=== PATIENT | male | born 1965 | race Caucasian/White ===

== ENCOUNTER 2016-07-31 23:41 | Inpatient (IN) | payer OTHER ==
[~2016-07-31] VITALS: Ht 182.9 cm; Wt 99.8 kg
[~2016-07-31 23:41] MED LIST: ACET-2158 PO; ALBU8.5H3 INH; ASPI-781 PO; ASPI81TA3 PO; ATOR80TA75 PO; CLOP75TA27 PO; DOCU-144 PO; ENOX40DI14 SC; GABA300C PO; HYDR-3498 PO; HYDR-3504 PO; METF500T4 PO; MOR2I IV; NOVO3I SC
[2016-08-01] VITALS (11 sets, daily range): BP systolic 102–119; BP diastolic 56–69; PULSE 56–74; RESP 17–20; TEMP 98; Ht 182.9 cm; Wt 99.8 kg
[2016-08-01 00:02] LABS: ADD SCAN DIFF NO
[2016-08-01 00:04] LABS: BASOPHIL # 0.1 10^3/ul (0.0-0.1); BASOPHILS % 1.1 % (0.0-2.0); EOSINOPHILS # 0.4 10^3/ul (0.0-0.5); EOSINOPHILS % 5.1 % (0.0-7.0); HEMOGLOBIN 15.1 g/dl (14.0-18.0); LYMPHOCYTES # 2.9 10^3/ul (0.8-2.9); LYMPHOCYTES % 35.7 % (15.0-51.0); MEAN CORPUSCULAR HEMOGLOBIN 28.5 pg (29.0-33.0); MEAN CORPUSCULAR HGB CONC 32.8 g/dl (32.0-37.0); MEAN CORPUSCULAR VOLUME 86.8 fl (82.0-101.0); MEAN PLATELET VOLUME 11.3 fl (7.4-10.4); MONOCYTE # 0.8 10^3/ul (0.3-0.9); MONOCYTES % 9.8 % (0.0-11.0); NEUTROPHIL # 3.8 10^3/ul (1.6-7.5); NEUTROPHILS % 47.7 % (39.0-77.0); PLATELET COUNT 261 10^3/UL (140-415); RED CELL DISTRIBUTION WIDTH 15.3 % (11.5-14.5)
--- NOTE | 2016-08-01 00:11 | RADRPT ---
PROCEDURE: CT brain without contrast. CLINICAL INDICATION: Stroke. TECHNIQUE: CT scan of the brain was performed on a multi-detector high-resolution CT scanner. Co ntiguous axial images were obtained from the skull base to the vertex without intravenous contrast. Coronal and sagittal reformatted images were also obtained. Images were reviewed on the PACS works tation. One or more of the following dose reduction techniques were used: - Automated exposure control. - Adjustment of the mA and/or kV according to patient size. - Use of iterative reconstruction technique. Exam CTD/vol = 45.01 mGy. Total exam DLP = 720.23 mGy-cm. COMPARISON: 01/23/2015. FINDINGS: The ventricles and cortical sulci are within normal limits for patient's age. There are no areas of abnormal attenuation within the brain parenchyma. There is no mass effect or midline shift. There is no intracranial hemorrhage or abnormal extra-axial collection. The calvarium is intact. There is no evidence of fracture. Visualized paranasal sinuses and mastoid air cells are clear. IMPRESSION: No acute intracranial abnormality identified. A call report was made to Dr. Cobb at 12:10 a.m. .Luis Lanza MD, MD Date Time Electronically viewed and signed by .Luis Lanza MD, MD on 08/01/2016 00:11 .T/
[2016-08-01 00:14] LABS: INR 0.86; PROTIME 11.7 Sec (12.2-14.2); PT RATIO 0.9
[2016-08-01 00:15] LABS: PARTIAL THROMBOPLASTIN TIME 24.7 Sec (25.0-35.0)
--- NOTE | 2016-08-01 00:17 | RADRPT ---
PROCEDURE: XR Chest. CLINICAL INDICATION: Stroke symptoms. TECHNIQUE: Portable AP view of the chest was obtained. COMPARISON: 01/23/2015 FINDINGS: The cardiomediastinal silhouette is within normal limits. The lungs are clear. There is no evidenc e for pleural effusion, pneumothorax or pulmonary vascular congestion. The osseous structures are i ntact with no evidence for acute abnormality. RPTAT:HJJR IMPRESSION: No evidence for acute intrathoracic pathology or interval change from 01/23/2015. Physician Vaughn Date Time Electronically viewed and signed by Jerod Landaverde Physician on 08/01/2016 00:17 JR/
[2016-08-01 00:19] LABS: ALBUMIN 4.1 g/dl (3.3-4.9)
[2016-08-01 00:20] LABS: CHLORIDE 107 mmol/L (97-110); POTASSIUM 4.5 mmol/L (3.5-5.1); SODIUM 143 mmol/L (135-144)
[2016-08-01 00:22] LABS: ALBUMIN/GLOBULIN RATIO 1.24; ANION GAP 16 (8-16); ASPARTATE AMINO TRANSFERASE 25 IU/L (15-46); BILIRUBIN,INDIRECT 0.2 mg/dl (0-1.1); BILIRUBIN,TOTAL 0.2 mg/dl (0.2-1.3); CARBON DIOXIDE 25 mmol/L (21-31); CHOLESTEROL 179 mg/dl (100-200); CREATININE 0.85 mg/dl (0.61-1.24); TOTAL PROTEIN 7.4 g/dl (6.1-8.1)
[2016-08-01 00:23] LABS: ALANINE AMINOTRANSFERASE 29 IU/L (13-69); ALKALINE PHOSPHATASE 87 IU/L (42-121); BLOOD UREA NITROGEN 16 mg/dl (7-20); CALCIUM 9.2 mg/dl (8.4-10.2); CHOL/HDL RATIO 6.1 RATIO; GLUCOSE 147 mg/dl (70-220); HDL CHOLESTEROL 29 mg/dl (28-71); TRIGLYCERIDES 271 mg/dl (0-149)
[2016-08-01 00:37] LABS: TROPONIN-I < 0.012 ng/ml (0.00-0.12)
--- NOTE | 2016-08-01 00:46 | CONS ---
DATE OF ADMISSION: 07/31/2016 DATE OF CONSULTATION: 07/31/2016 REASON FOR CONSULTATION: I was asked to see the patient for concern of stroke. HISTORY OF PRESENT ILLNESS: The patient is a 51-year-old gentleman with past medical history of hyp ertension, diabetes, and tobacco use, who presents with concerns of left arm weakness. The patient was in his baseline state of health until roughly 10:30, at which time he says that he developed lef t arm weakness. The patient reports having a prior stroke with complete resolution. The patient de nies any headache, denies chest pain, denies any shortness of breath, denies any prior impairment pr evious to this stroke. Denies use of anticoagulants. Denies any recent trauma or recent infection. The patient still feels as though his symptoms are static. PAST MEDICAL HISTORY: As described. MEDICATIONS: The patient takes an aspirin. SOCIAL HISTORY: The patient still is a smoker. Review of the patient's noncontrast head CT reveals no abnormalities. PHYSICAL EXAMINATION: NEUROLOGIC: The patient's exam appears to be effort dependent. His NIH stroke scale score scored a 2, 1 for sensory asymmetry of his face, arm, and leg and 1 for perceived weakness of the left arm, although the patient was able to complete fine motor movements with dexterity on each side. ASSESSMENT: This is a gentleman who presents with left arm weakness of uncertain neurologic source. I do not believe the patient has had an ischemic stroke. I would not recommend tPA in this partic ular instance. The patient should be given an aspirin and his blood pressure should be allowed to i ncrease for permissive hypertension. He should be hydrated with saline and an MRI scan of the brain should be performed as well as for ischemic injury. I discussed my findings and concerns with the patient's emergency department physician, who agreed and supported the assessment. Dictated By: KLAUS JORGE CM/JUAN Conf#: [id number] DID#: [id number]
--- NOTE | 2016-08-01 01:00 | ERA ---
ER Documentation Chief Complaint Date/Time DATE: 08/01/16 TIME: 00:58 Chief Complaint sudden left sided weakness w/ left facial droop 45 minutes ago HPI This is a 51-year-old gentleman claims a sudden onset of weakness of left facial droop 45 minutes ago. He has been a history of previous stroke with residual left-sided weakness. Onset was 45 minutes ago. Code stroke immediately called. Dr. Steven Granados from telemetry neurology consulted immediately. ROS All systems reviewed and are negative except as per history of present illness. Medications Home Meds Active Scripts Hydrocodone Bit-Acetaminophen* ([place]*) 5-325 Mg Tab, 1 TAB PO Q6 Y for PAIN, # 12 TAB Prov:JOSH LAUREN DO 01/23/15 Morphine Sulfate (Morphine Sulfate) 2 Mg/Ml Soln, 2 MG IV Q2H Y for PAIN for 30 Days Prov:ROCÍO JEAN 03/26/14 Insulin Aspart* (Novolog Insulin Pen*) 100 Unit/Ml Soln, 0 UNIT SC WITH MEALS BEDTIME for 30 Days Prov:ROCÍO JEAN 03/26/14 Hydrocodone Bit-Acetaminophen (Hydrocodone-APAP) 1 Tab Tab, 1 TAB PO Q12H Y for PAIN for 30 Days Prov:ROCÍO JEAN 03/26/14 Gabapentin* (Neurontin*) 300 Mg Cap, 300 MG PO TID@,,17 for 30 Days Prov:ROCÍO JEAN 03/26/14 Docusate Sodium* (Colace*) 100 Mg Cap, 100 MG PO BID for 30 Days Prov:ROCÍO JEAN 03/26/14 Aspirin* (Ecotrin*) 325 Mg Tabec, 325 MG PO DAILY for 30 Days Prov:ROCÍO JEAN 03/26/14 Acetaminophen (TYLENOL 325 MG TAB) 325 Mg Tab, 650 MG PO Q4H Y for Temp greater than 99.6F for 30 Days, TAB Prov:ROCÍO JEAN 03/26/14 Reported Medications Enoxaparin Sodium* (Lovenox*) 40 Mg/0.4 Ml Syringe, 40 MG SC DAILY, SYR 03/24/14 Albuterol Sulfate* (Proair HFA*) 8.5 Gm Hfa.aer.ad, 2 PUFF INH Q4H Y for WHEEZING AND SOB, INH 03/24/14 Metformin* (Glucophage*) 500 Mg Tab, 500 MG PO BID, TAB 03/24/14 Aspirin* (Aspirin* Chew) 81 Mg Tab.chew, 81 MG PO DAILY, TAB.CHEW 03/24/14 Atorvastatin* (Atorvastatin*) 80 Mg Tablet, 80 MG PO DAILY, TAB 03/24/14 Clopidogrel Bisulfate (Clopidogrel) 75 Mg Tablet, 75 MG PO DAILY, TAB 03/24/14 Allergies Allergies: Coded Allergies: No Known Allergy (Unverified , 03/23/14) PMhx/Soc History of Surgery: Yes Anesthesia Reaction: No Hx Neurological Disorder: Yes (STROKE 2013 and TIA) Hx Respiratory Disorders: Yes (ASTHMA) Hx Cardiac Disorders: Yes (HTN,) Hx Psychiatric Problems: No Hx Miscellaneous Medical Probl: Yes (DM with neuropathy, prev trach for throat infection) Hx Alcohol Use: No Hx Substance Use: No Hx Tobacco Use: Yes Smoking Status: Current every day smoker Physical Exam Vitals Vital Signs Date Time Temp Pulse Resp B/P Pulse Ox O2 Delivery O2 Flow Rate FiO2 08/01/16 00:20 Nasal Cannula 2 07/31/16 23:46 98.3 87 20 157/95 100 Physical Exam Const: [] Head: Atraumatic Eyes: Normal Conjunctiva ENT: Normal External Ears, Nose and Mouth. Neck: Full range of motion..~ No meningismus. Resp: Clear to auscultation bilaterally Cardio: Regular rate and rhythm, no murmurs Abd: Soft, non tender, non distended. Normal bowel sounds Skin: No petechiae or rashes Back: No midline or flank tenderness Ext: No cyanosis, or edema Neur: Awake and alert Psych: Normal Mood and Affect Result Diagram: 07/31/16 2355 07/31/16 2355 Results 24 hrs Laboratory Tests Test 07/31/16 23:55 08/01/16 00:15 White Blood Count 8.010^3/ul Red Blood Count 5.3010^6/ul Hemoglobin 15.1g/dl Hematocrit 46.0% Mean Corpuscular Volume 86.8fl Mean Corpuscular Hemoglobin 28.5pg Mean Corpuscular Hemoglobin Concent 32.8g/dl Red Cell Distribution Width 15.3% Platelet Count 62437^3/UL Mean Platelet Volume 11.3fl Neutrophils % 47.7% Lymphocytes % 35.7% Monocytes % 9.8% Eosinophils % 5.1% Basophils % 1.1% Nucleated Red Blood Cells % 0.0/100WBC Neutrophils # 3.810^3/ul Lymphocytes # 2.910^3/ul Monocytes # 0.810^3/ul Eosinophils # 0.410^3/ul Basophils # 0.110^3/ul Nucleated Red Blood Cells # 0.010^3/ul Prothrombin Time 11.7Sec Prothrombin Time Ratio 0.9 INR International Normalized Ratio 0.86 Activated Partial Thromboplast Time 24.7Sec Sodium Level 143mmol/L Potassium Level 4.5mmol/L Chloride Level 107mmol/L Carbon Dioxide Level 25mmol/L Anion Gap 16 Blood Urea Nitrogen 16mg/dl Creatinine 0.85mg/dl Glucose Level 147mg/dl Hemoglobin A1c 6.2% Calcium Level 9.2mg/dl Total Bilirubin 0.2mg/dl Direct Bilirubin 0.00mg/dl Indirect Bilirubin 0.2mg/dl Aspartate Amino Transf (AST/SGOT) 25IU/L Alanine Aminotransferase (ALT/SGPT) 29IU/L Alkaline Phosphatase 87IU/L Troponin I < 0.012ng/ml Total Protein 7.4g/dl Albumin 4.1g/dl Globulin 3.30g/dl Albumin/Globulin Ratio 1.24 Triglycerides Level 271mg/dl Cholesterol Level 179mg/dl LDL Cholesterol, Calculated 96mg/dl HDL Cholesterol 29mg/dl Cholesterol/HDL Ratio 6.1RATIO Bedside Glucose 160mg/dL Procedures/MDM EKG: Rate/Rhythm: [Normal Sinus Rhythm] QRS, ST, T-waves: [No changes consistent w/ acute ischemia] Impression: [No evidence of ischemia or arrhythmia] Chest X-ray 1V Interpreted by me: Soft Tissue: No acute abnormalities Bones: No acute abnormalities Mediastinum/Cardiac Silhouette/Lungs: [No acute abnormalities] CT head read as negative Medical decision-makin-year-old gentleman with initial droop sudden onset. Dr. Granados feels that the patient is not giving maximal effort during his exam and therefore is not quite a TPA candidate. Recommends aspirin therapy and MRI in the a.m. I agree with his assessment and plan. Patient will be admitted to hospitalist Critical Care: Time: 45 minutes Treatments/Evaluations: Close monitoring and treatment of unstable vital signs, cardiorespiratory, and neurologic status, while maintaining tight balance of fluid, respiratory, and cardiac interventions. Departure Diagnosis: Primary Impression: Acute weakness Condition: Serious VI POOLE Aug 01, 2016 00:59
[2016-08-01] MEDS ORDERED: HYDROCODONE/APAP (10/325) TAB PO ONE (03:00)
[2016-08-01] MEDS ORDERED: GABAPENTIN 100 MG CAP PO ONE (03:00)
[2016-08-01] MEDS ORDERED: ONDANSETRON 4 MG INJ IV PRN (06:00)
[2016-08-01] MEDS ORDERED: HYDROCODONE/APAP (5/325) TAB PO PRN (06:00)
[2016-08-01] MEDS ORDERED: ALBUTEROL HFA 8 GM INHALER INH PRN (06:00)
[2016-08-01] MEDS ORDERED: LORAZEPAM 2 MG INJ IV PRN (06:00)
[2016-08-01] MEDS ORDERED: NACL 0.9% 3 ML SYG IV SCH (06:00)
[2016-08-01] MEDS ORDERED: ACETAMINOPHEN 325 MG TAB PO PRN (06:00)
--- NOTE | 2016-08-01 07:51 | HP ---
DATE OF ADMISSION: 08/01/2016 TIME SEEN: 3 a.m. CHIEF COMPLAINT: Left-sided weakness and numbness. HISTORY OF PRESENT ILLNESS: The patient is a 51-year-old male with a history of left-sided stroke i n 2013, hypertension, diabetes, diabetic neuropathy, and asthma who [facility] left-sided upper and lower extremity weakness and numbness. He stated he was diagnosed w ith a left-sided stroke in 2013 and stated that he regained all his strength after a year and half. In June of this year he stated that he was admitted to [facility] with similar left-sided weakness and numbness requiring administration of TPA. He said last night while he was watching TV all of a sudden he said he started sweating and said he was told by family and friends that he turne d "white." He said he then experienced similar left-sided weakness and numbness that he has been ex periencing as well as worsening of his lower extremity pain which he associated with diabetic neurop athy. On further questioning, he also reported diffuse, mostly left-sided chest pain which he descr ibed as "somebody stabbing me." He denied any shortness of breath, headache, visual disturbance, sl urred speech, or facial droop. When he presented to the ER, his blood pressure was 157/95, heart rate 87, respiratory rate 20, temp erature 98.3, oxygen saturation 100%. A CT of the head shows no acute intracranial abnormality. Th e patient was evaluated by the teleneurologist, Dr. Steven Granados, who thought that this was not ische erendira stroke and did not recommend TPA. Of note, the patient was more concerned about his pain from h is diabetic neuropathy and mostly concerned about getting his [place] and gabapentin. He also stated that he ran out of all his medications for the past 2 weeks, which includes among others Plavix, asp irin, Lipitor, antihypertensives, as well as his diabetic medications. REVIEW OF SYSTEMS: A 12-point review was performed, negative except as mentioned in HPI. PAST MEDICAL HISTORY: As per HPI. PAST SURGICAL HISTORY: 1. Cholecystectomy. 2. Hernia repair. 3. Tracheostomy in 2001, which he states was secondary to "throat infection." SOCIAL HISTORY: He had smoked a pack and a half a day for over 20 years, but nowadays he smokes onl y 4 cigarettes per day. He denied a history of alcohol, but reported only experimenting with drugs a long time ago. ALLERGIES: NO KNOWN DRUG ALLERGIES. HOME MEDICATIONS: 1. Albuterol. 2. Plavix. 3. Aspirin. 4. Gabapentin. 5. [place]. 6. Insulin. 7. Metformin. PHYSICAL EXAMINATION: VITAL SIGNS: Stable. GENERAL: Overweight male lying in bed in no acute distress, answering questions appropriately and a ble to speak in full sentences. HEENT: No obvious head deformity. Pupils are reactive to light. Extraocular muscles intact. CARDIOVASCULAR: Regular rate and rhythm with no extra sounds. LUNGS: Clear. ABDOMEN: Obese, soft. There is a midline vertical old surgical scar. Abdomen is nontender. Posit darrin bowel sounds. EXTREMITIES: No edema. NEUROLOGIC: He has slightly decreased strength on both upper and lower extremities with decreased l eft hand nurse special. Sensations are also decreased on the left side of both upper and lower extremities i ncluding the left side of his face. LABORATORY DATA: CBC and CMP are within acceptable range. IMAGING: Brain CT: No acute intracranial abnormality. Chest x-ray: No evidence of acute intratho racic pathology. IMPRESSION 1. Left-sided weakness and numbness, rule out cerebrovascular accident. 2. History of left-sided cerebrovascular accident. 3. Diabetes. 4. Hypertension, currently blood pressure within goal. 5. History of diabetic neuropathy. 6. Obesity with a BMI of almost 31. PLAN: Admit to telemetry unit. He will be continued with his home aspirin, Plavix, and Lipitor. Manuel santoro will be on insulin for his diabetes. Will hold his antihypertensives for 24 hours from the sympto m onset, which will until tonight, and will not treat unless his blood pressure is greater than 220/ 120. Will obtain an MRI of the brain and carotid Doppler ultrasounds as well as a 2D echo. He will be on subcutaneous heparin for DVT prophylaxis. Will check A1c and fasting lipid panel. Further workup and management will be per clinical course. Dictated By: VI MENDEZ/JUAN Conf#: [id number] DID#: [id number]
[2016-08-01] MEDS: CLOPIDOGREL 75 MG TAB PO SCH (08:47)
[2016-08-01] MEDS: FAMOTIDINE 20 MG TAB PO SCH ×2 (08:47→21:06)
[2016-08-01] MEDS: ASPIRIN 81 MG TAB PO SCH (08:47)
[2016-08-01] MEDS: GABAPENTIN 300 MG CAP PO SCH ×3 (08:47→17:04)
[2016-08-01] MEDS: ATORVASTATIN 80 MG TAB PO SCH (08:47)
[2016-08-01] MEDS: ENOXAPARIN 40 MG/0.4 ML SYG SC SCH (08:48)
[2016-08-01 10:15] LABS: ADD SCAN DIFF NO
[2016-08-01 10:17] LABS: BASOPHIL # 0.1 10^3/ul (0.0-0.1); BASOPHILS % 1.3 % (0.0-2.0); EOSINOPHILS # 0.4 10^3/ul (0.0-0.5); EOSINOPHILS % 5.9 % (0.0-7.0); HEMATOCRIT 43.7 % (42.0-52.0); HEMOGLOBIN 13.8 g/dl (14.0-18.0); LYMPHOCYTES # 2.7 10^3/ul (0.8-2.9); MEAN CORPUSCULAR HEMOGLOBIN 27.8 pg (29.0-33.0); MEAN CORPUSCULAR HGB CONC 31.6 g/dl (32.0-37.0); MEAN CORPUSCULAR VOLUME 87.9 fl (82.0-101.0); MEAN PLATELET VOLUME 11.6 fl (7.4-10.4); MONOCYTE # 0.7 10^3/ul (0.3-0.9); MONOCYTES % 10.6 % (0.0-11.0); NEUTROPHIL # 2.9 10^3/ul (1.6-7.5); NEUTROPHILS % 42.5 % (39.0-77.0); PLATELET COUNT 209 10^3/UL (140-415); RED BLOOD COUNT 4.97 10^6/ul (4.70-6.10); RED CELL DISTRIBUTION WIDTH 15.4 % (11.5-14.5); WHITE BLOOD COUNT 6.8 10^3/ul (4.8-10.8)
[2016-08-01 10:28] LABS: ALBUMIN 3.3 g/dl (3.3-4.9)
[2016-08-01 10:29] LABS: CHLORIDE 105 mmol/L (97-110); POTASSIUM 3.8 mmol/L (3.5-5.1); SODIUM 137 mmol/L (135-144)
[2016-08-01 10:31] LABS: ALANINE AMINOTRANSFERASE 32 IU/L (13-69); ALBUMIN/GLOBULIN RATIO 1.13; ALKALINE PHOSPHATASE 68 IU/L (42-121); ANION GAP 11 (8-16); ASPARTATE AMINO TRANSFERASE 18 IU/L (15-46); BILIRUBIN,INDIRECT 0.2 mg/dl (0-1.1); BILIRUBIN,TOTAL 0.2 mg/dl (0.2-1.3); BLOOD UREA NITROGEN 15 mg/dl (7-20); CARBON DIOXIDE 25 mmol/L (21-31); CHOLESTEROL 153 mg/dl (100-200); CREATININE 0.72 mg/dl (0.61-1.24); GLUCOSE 161 mg/dl (70-220); TOTAL PROTEIN 6.2 g/dl (6.1-8.1)
[2016-08-01 10:32] LABS: CALCIUM 8.8 mg/dl (8.4-10.2); CHOL/HDL RATIO 5.8 RATIO; HDL CHOLESTEROL 26 mg/dl (28-71); MAGNESIUM 1.9 mg/dl (1.7-2.5); TRIGLYCERIDES 74 mg/dl (0-149)
[2016-08-01 10:48] LABS: TROPONIN-I < 0.012 ng/ml (0.00-0.12)
--- NOTE | 2016-08-01 11:00 | RADRPT ---
PROCEDURE: US Carotids. CLINICAL INDICATION: Left-sided weakness TECHNIQUE: Multiple sonographic of the carotid arteries were obtained utilizing townsend scale imaging . Color and Doppler imaging was performed. The images were reviewed on a PACS workstation. COMPARISON: 03/24/2014 FINDINGS: Location Right Left CCA 120 cm/sec 119 cm/sec Prox ICA 99 cm/sec 54 cm/sec Mid ICA 75 cm/sec 71 cm/sec Dist ICA 70 cm/sec 60 cm/sec ECA 124 cm/sec 102 cm/sec ICA/CCA 1.1 0.7 Antegrade flow is seen within the vertebral arteries bilaterally. Very minimal is seen within the carotid system bilaterally. No evidence for hemodynamically significant stenosis or occlusion is identified. IMPRESSION: 1. No evidence for hemodynamically significant stenosis- validated velocity measurements with benton ographic measurements, velocity criteria are extrapolated from diameter data as defined by the Socie ty of Radiologists in Ultrasound Consensus Conference Radiology 2003; 229;340-346. This study does indirectly reference the measurement of the distal ICA diameter as the denominator for stenosis pepe urement. 2. Antegrade flow seen within the vertebral arteries bilaterally. Note: Ultrasound velocity criteria are extrapolated from diameter data as defined by the Society of Radiologists in Ultrasound Consensus Conference Radiology 2003; 229;340-346. RPTAT:PP .Tadeo Callaway MD, Date Time Electronically viewed and signed by .Tadeo Callaway MD, on 08/01/2016 10:59 .V/
[2016-08-02] VITALS: BP 121/66; PULSE 65; RESP 18
[2016-08-02 04:20] VITALS: BP 119/75; RESP 18
[2016-08-02 04:40] VITALS: PULSE 59
[2016-08-02 07:51] VITALS: BP 119/71; RESP 18
[2016-08-02 08:19] VITALS: PULSE 62
[2016-08-02] MEDS: ATORVASTATIN 80 MG TAB PO SCH (08:22)
[2016-08-02] MEDS: FAMOTIDINE 20 MG TAB PO SCH (08:22)
[2016-08-02] MEDS: GABAPENTIN 300 MG CAP PO SCH (08:22)
[2016-08-02] MEDS: CLOPIDOGREL 75 MG TAB PO SCH (08:22)
[2016-08-02] MEDS: ASPIRIN 81 MG TAB PO SCH (08:23)
[2016-08-02] MEDS: ENOXAPARIN 40 MG/0.4 ML SYG SC SCH (08:27)
--- NOTE | 2016-08-02 09:02 | PDOCDIS ---
Discharge Instructions CONDITION Patient Condition: Good HOME CARE INSTRUCTIONS: Special Diet: DIABETIC DIET ACTIVITY: Activity Restrictions: No Restrictions FOLLOW UP/APPOINTMENTS Appointments F/U WITH YOUR PCP IN 1-2 WEEKS BERNADETTE HOLCOMB Aug 02, 2016 09:02
[2016-08-02] MEDS ORDERED: METF500T4 PO (09:22)
[2016-08-02] MEDS ORDERED: ALBU8.5H3 INH (09:22)
[2016-08-02] MEDS ORDERED: CLOP75TA27 PO (09:22)
[2016-08-02] MEDS ORDERED: ATOR80TA75 PO (09:22)
[2016-08-02] MEDS ORDERED: GABA300C PO (09:22)
[2016-08-02] MEDS ORDERED: ASPI81TA3 PO (09:22)
--- NOTE | 2016-08-02 13:36 | DS ---
DATE OF ADMISSION: 08/01/2016 DATE OF DISCHARGE: 08/02/2016 DISCHARGE DIAGNOSES: 1. Left hand weakness and numbness possibly secondary to transient ischemic attack, now resolved. Imaging was negative, not a candidate for TPA. 2. History of diabetes. Diabetes under control, A1c is 6.1. Sugars have been stable without any m edications during hospitalization. Recommendation is to continue metformin. 3. History of hypertension. The patient no longer has any hypertension. The patient's blood press ure is low to normal without any medications. 4. History of cerebrovascular accident, stable. HOSPITAL COURSE: The patient is a 51-year-old male with history of diabetes, hypertension, diabetic nephropathy, history of stroke in 2013 and asthma. The patient presents with left-sided weakn ess and numbness. States that he has pain and numbness in his left hand and did have some weakness. The patient was seen by a teleneurologist in the ER, who thought that this was not an ischemic str jacey and did not recommend TPA. The patient, of note, was more concerned about his diabetic neu ropathy and the pain from it, and was concerned about pain control. The patient also stated he ran out of all his home medications. The patient's CT of his brain was within normal limits. There wa s no acute process noted. The patient had a carotid Doppler study done that showed no evidence of a ny significant stenosis. Chest x-ray also showed no evidence of any acute process. The patient was ambulating and his left hand pain did seem to improve. His weakness in the left hand also improved . He was ambulating with no issues. The patient stated that he felt that he was stable for dischar ge and wanted to go home. Indeed, he was felt to be stable for discharge. The patient's A1c was ch ecked and was 6.1. Of note, his sugars were stable throughout the hospitalization without any insul in. It was felt that he no longer needed any Lantus and he can continue his metformin. This was to ld the patient. In addition, his blood pressure was low to normal during the hospitalization and he was not receiving any antihypertensives during the hospitalization. This was also told to the laura ent. On the day of discharge, the patient's vitals, labs, physical exam were stable. He had no acu te complaints and questions were answered. CONDITION ON DISCHARGE: Stable. DISPOSITION: To home. MEDICATIONS: The patient was to continue: 1. Aspirin. 2. Plavix. 3. Gabapentin. 4. Metformin. All of which were renewed for the patient. Prescriptions were given to the patient. 5. Lipitor was also given to the patient. 6. Albuterol. The patient no longer seems to require insulin. He had no hypertension meds on his home medication list. The patient was told that he can stop taking insulin and does not need any new blood pressur e medication at this time. The patient was taking [place] at home. He stated that he ran out. No ne w pain medications were given to the patient as it was not felt to be necessary as his pain appeared to be controlled with the gabapentin. FOLLOWUP: The patient is to follow up with his PCP in 1 to 2 weeks. Greater than 30 minutes was spent coordinating the discharge of patient. Dictated By: BERNADETTE YOO/JUAN Conf#: [id number] DID#: [id number]
== END 2016-08-02 11:25 | disposition home or self-care (01) | DRG 69 ==
LOC: E/R 23:41 → TEL 08-01 00:53
PROVIDERS: ADMIT Internal Medicine; ATTEND Internal Medicine
DX: G45.9 Transient cerebral ischemic attack, unspecified (principal); I10 Essential (primary) hypertension; E11.9 Type 2 diabetes mellitus without complications; Z86.73 Personal history of transient ischemic attack (TIA), and cerebral infarction without residual deficits; F17.200 Nicotine dependence, unspecified, uncomplicated; Z79.82 Long term (current) use of aspirin; Z79.4 Long term (current) use of insulin; E66.9 Obesity, unspecified; Z68.29 Body mass index [BMI] 29.0-29.9, adult
CPT/HCPCS: 36415; 70450; 71010; 80053; 80061; 82962; 83036; 83735; 84443; 84484; 85025; 85610; 85730; 93005; 93880; J1650

== ENCOUNTER 2017-02-21 22:53 | Emergency (ER) | payer OTHER ==
[~2017-02-21] VITALS: Ht 182.9 cm; Wt 97.0 kg
[~2017-02-21 22:53] MED LIST changes: -ASPI-781 PO
[2017-02-21 23:43] VITALS: Ht 182.9 cm; Wt 97.0 kg
[2017-02-22 05:07] LABS: BASOPHIL # 0.1 10^3/ul (0.0-0.1); BASOPHILS % 1.1 % (0.0-2.0); EOSINOPHILS # 0.4 10^3/ul (0.0-0.5); EOSINOPHILS % 5.5 % (0.0-7.0); HEMATOCRIT 45.2 % (42.0-52.0); HEMOGLOBIN 14.6 g/dl (14.0-18.0); LYMPHOCYTES # 2.5 10^3/ul (0.8-2.9); LYMPHOCYTES % 31.5 % (15.0-51.0); MEAN CORPUSCULAR HEMOGLOBIN 28.4 pg (29.0-33.0); MEAN CORPUSCULAR HGB CONC 32.3 g/dl (32.0-37.0); MEAN CORPUSCULAR VOLUME 87.9 fl (82.0-101.0); MEAN PLATELET VOLUME 11.8 fl (7.4-10.4); MONOCYTE # 0.9 10^3/ul (0.3-0.9); MONOCYTES % 10.9 % (0.0-11.0); NEUTROPHILS % 50.1 % (39.0-77.0); PLATELET COUNT 225 10^3/UL (140-415); RED BLOOD COUNT 5.14 10^6/ul (4.70-6.10); RED CELL DISTRIBUTION WIDTH 14.8 % (11.5-14.5)
--- NOTE | 2017-02-22 05:11 | RADRPT ---
PROCEDURE: Noncontrast CT Head. CLINICAL INDICATION: Headache. TECHNIQUE: Noncontrast CT of the head was obtained. The administered radiation dose was CTDI vol = 45 mGy, DLP = 810 mGy-cm. One or more of the following dose reduction techniques were used: automate d exposure control, adjustment of the mA and/or kV according to patient size and/or use of iterative reconstruction technique. COMPARISON: 07/31/2016 FINDINGS: The ventricles and sulci are within normal limits. There is no acute intracranial hemorrhage or ext ra-axial fluid collection. There is no mass effect. No midline shift is identified. There is no loss of townsend-white differentiation to suggest acute infarction. The orbits are within normal limits. The paranasal sinuses and mastoid air cells are without fluid. Some mild mucosal thickening is scattered throughout the ethmoid air cells. No destructive osseous lesion is identified. IMPRESSION: No acute findings. RPTAT: HIKT .Carlos Peters MD, MD Date Time Electronically viewed and signed by .Carlos Peters MD, on 02/22/2017 05:11 .T/
--- NOTE | 2017-02-22 05:31 | ERD ---
ER Documentation Chief Complaint Date/Time DATE: 02/22/17 TIME: 05:29 Chief Complaint feeling tired&drowsy, hx CVA&DM on Metformin HPI This is a 51-year-old male who states that he feels excessively sleepy for the past 3 days. He says he wakes up and does not feel refreshed and is very tired all day long and can fall asleep very easily. He says he does have the ability to fall asleep just sitting in a chair. He says he does not know if he snores and occasionally wakes up gasping for air. The patient is diabetic and has been checking his blood sugar and he says his blood sugars been normal. Denies any head trauma no fever no illness denies any liver disease or kidney disease. Says he has no pain no headache no chest pain shortness of breath no focal neurological complaints. He says he has never had these symptoms before ROS All systems reviewed and are negative except as per history of present illness. Medications Home Meds Active Scripts Gabapentin* (Neurontin*) 300 Mg Cap, 300 MG PO TID@,, for 30 Days, #90 2 Refills Prov:BERNADETTE HOLCOMB 08/02/16 Albuterol Sulfate* (Proair HFA*) 8.5 Gm Hfa.aer.ad, 2 PUFF INH Q4H Y for WHEEZING AND SOB, #1 INH 1 Refill Prov:BERNADETTE HOLCOMB 08/02/16 Metformin* (Glucophage*) 500 Mg Tab, 500 MG PO BID, #60 TAB 2 Refills Prov:BERNADETTE HOLCOMB 08/02/16 Aspirin* (Aspirin* Chew) 81 Mg Tab.chew, 81 MG PO DAILY, #90 TAB.CHEW Prov:BERNADETTE HOLCOMB 08/02/16 Atorvastatin* (Atorvastatin*) 80 Mg Tablet, 80 MG PO DAILY, #90 TAB Prov:BERNADETTE HOLCOMB 08/02/16 Clopidogrel Bisulfate (Clopidogrel) 75 Mg Tablet, 75 MG PO DAILY, #90 TAB Prov:BERNADETTE HOLCOMB 08/02/16 Hydrocodone Bit-Acetaminophen* ([place]*) 5-325 Mg Tab, 1 TAB PO Q6 Y for PAIN, # 12 TAB Prov:JOSH LAUREN DO 01/23/15 Morphine Sulfate (Morphine Sulfate) 2 Mg/Ml Soln, 2 MG IV Q2H Y for PAIN for 30 Days Prov:ROCÍO JEAN 03/26/14 Insulin Aspart* (Novolog Insulin Pen*) 100 Unit/Ml Soln, 0 UNIT SC WITH MEALS BEDTIME for 30 Days Prov:ROCÍO JEAN 03/26/14 Hydrocodone Bit-Acetaminophen (Hydrocodone-APAP) 1 Tab Tab, 1 TAB PO Q12H Y for PAIN for 30 Days Prov:ROCÍO JEAN 03/26/14 Docusate Sodium* (Colace*) 100 Mg Cap, 100 MG PO BID for 30 Days Prov:ROCÍO JEAN 03/26/14 Acetaminophen (TYLENOL 325 MG TAB) 325 Mg Tab, 650 MG PO Q4H Y for Temp greater than 99.6F for 30 Days, TAB Prov:ROCÍO JEAN. 03/26/14 Reported Medications Enoxaparin Sodium* (Lovenox*) 40 Mg/0.4 Ml Syringe, 40 MG SC DAILY, SYR 03/24/14 Allergies Allergies: Coded Allergies: No Known Allergy (Unverified , 03/23/14) PMhx/Soc History of Surgery: Yes (TRACH SECONDARY TO THROAT INFECTION) Anesthesia Reaction: No Hx Neurological Disorder: Yes (STROKE TIA) Hx Respiratory Disorders: Yes (ASTHMA) Hx Cardiac Disorders: Yes (HTN) Hx Psychiatric Problems: No Hx Miscellaneous Medical Probl: No (NEUROPATHY, DM) Hx Alcohol Use: No Hx Substance Use: No Hx Tobacco Use: Yes Smoking Status: Current every day smoker FmHx Family History: No coronary disease Physical Exam Vitals Vital Signs Date Time Temp Pulse Resp B/P Pulse Ox O2 Delivery O2 Flow Rate FiO2 02/22/17 04:09 74 16 119/51 96 Room Air 02/22/17 02:42 98.9 72 18 121/75 95 Room Air 02/21/17 23:43 98.9 86 18 117/60 95 Physical Exam Const: Well-developed, well-nourished Head: Atraumatic, normocephalic Eyes: Normal Conjunctiva, PERRLA, EOMI, normal sclera, no nystagmus ENT: Normal External Ears, Nose and Mouth, moist mucus membranes. Neck: Full range of motion. No meningismus, no lymphadenopathy. Resp: Clear to auscultation bilaterally, no wheezing, rhonchi, rales Cardio: Regular rate and rhythm, no murmurs, S1 S2 present Abd: Soft, non tender x 4, non distended. Normal bowel sounds, no guarding or rebound, no pulsitile abdominal masses or bruits Skin: No petechiae or rashes, no ecchymosis , no maculopapular rash Back: No midline or flank tenderness Ext: No cyanosis, or edema, FROM x 4, normal inspection, neurovascularly intact x 4 Neur: Awake and alert, STR 5/5 x 4, sensation intact x 4, no focal findings, cerebellum intact Psych: Normal Mood and Affect Result Diagram: 02/22/17 0445 02/22/17444 Results 24 hrs Laboratory Tests Test 02/22/17 02:40 02/22/17 03:45 02/22/17 04:45 Bedside Glucose 123mg/dL 122mg/dL White Blood Count 8.010^3/ul Red Blood Count 5.1410^6/ul Hemoglobin 14.6g/dl Hematocrit 45.2% Mean Corpuscular Volume 87.9fl Mean Corpuscular Hemoglobin 28.4pg Mean Corpuscular Hemoglobin Concent 32.3g/dl Red Cell Distribution Width 14.8% Platelet Count 41655^3/UL Mean Platelet Volume 11.8fl Neutrophils % 50.1% Lymphocytes % 31.5% Monocytes % 10.9% Eosinophils % 5.5% Basophils % 1.1% Nucleated Red Blood Cells % 0.0/100WBC Neutrophils # 4.010^3/ul Lymphocytes # 2.510^3/ul Monocytes # 0.910^3/ul Eosinophils # 0.410^3/ul Basophils # 0.110^3/ul Nucleated Red Blood Cells # 0.010^3/ul Sodium Level 142mmol/L Potassium Level 4.3mmol/L Chloride Level 109mmol/L Carbon Dioxide Level 27mmol/L Anion Gap 10 Blood Urea Nitrogen 13mg/dl Creatinine 0.71mg/dl Glucose Level 126mg/dl Calcium Level 9.3mg/dl Total Bilirubin 0.2mg/dl Direct Bilirubin 0.00mg/dl Indirect Bilirubin 0.2mg/dl Aspartate Amino Transf (AST/SGOT) 19IU/L Alanine Aminotransferase (ALT/SGPT) 33IU/L Alkaline Phosphatase 100IU/L Ammonia 13umol/l Total Protein 6.4g/dl Albumin 3.4g/dl Globulin 3.00g/dl Albumin/Globulin Ratio 1.13 Procedures/MDM PROCEDURE: Noncontrast CT Head. CLINICAL INDICATION: Headache. TECHNIQUE: Noncontrast CT of the head was obtained. The administered radiation dose was CTDI vol = 45 mGy, DLP = 810 mGy-cm. One or more of the following dose reduction techniques were used: automated exposure control, adjustment of the mA and/or kV according to patient size and/or use of iterative reconstruction technique. COMPARISON: 07/31/2016 FINDINGS: The ventricles and sulci are within normal limits. There is no acute intracranial hemorrhage or extra-axial fluid collection. There is no mass effect. No midline shift is identified. There is no loss of townsend-white differentiation to suggest acute infarction. The orbits are within normal limits. The paranasal sinuses and mastoid air cells are without fluid. Some mild mucosal thickening is scattered throughout the ethmoid air cells. No destructive osseous lesion is identified. IMPRESSION: No acute findings. RPTAT: HIKT .Carlos Peters MD, MD Date Time Electronically viewed and signed by .Carlos Peters MD, MD on 02/22/2017 05:11 .T/ CC: KAITLYNN LEVINE DO Patient's blood work is unremarkable. Ammonia level is normal. The patient likely probably has some sleep apnea to some degree he needs to get a sleep study. Will have him follow-up with his primary care physician and told him strict warning signs to return Departure Diagnosis: Primary Impression: Excessive sleepiness Additional Impression: Sleep apnea Sleep apnea type: unspecified type Qualified Code: G47.30 - Sleep apnea, unspecified type Condition: Stable KAITLYNN LEVINE DO Feb 22, 2017 05:31
[2017-02-22 05:33] LABS: ALBUMIN 3.4 g/dl (3.3-4.9); ALBUMIN/GLOBULIN RATIO 1.13; BILIRUBIN,INDIRECT 0.2 mg/dl (0-1.1); BILIRUBIN,TOTAL 0.2 mg/dl (0.2-1.3); CALCIUM 9.3 mg/dl (8.4-10.2); CREATININE 0.71 mg/dl (0.61-1.24); POTASSIUM 4.3 mmol/L (3.5-5.1); TOTAL PROTEIN 6.4 g/dl (6.1-8.1)
[2017-02-22 07:02] VITALS: BP 115/67; PULSE 68; RESP 20; TEMP 97.3
== END 2017-02-22 07:04 | disposition home or self-care (01) ==
LOC: E/R 22:53
DX: G47.30 Sleep apnea, unspecified (principal); J45.909 Unspecified asthma, uncomplicated; I10 Essential (primary) hypertension; E11.9 Type 2 diabetes mellitus without complications; F17.210 Nicotine dependence, cigarettes, uncomplicated; Z79.01 Long term (current) use of anticoagulants; Z79.4 Long term (current) use of insulin; Z79.84 Long term (current) use of oral hypoglycemic drugs; Z79.82 Long term (current) use of aspirin
CPT/HCPCS: 36415; 70450; 80053; 82140; 82962; 85025

== ENCOUNTER 2017-04-28 02:47 | Emergency (ER) | payer OTHER ==
[~2017-04-28] VITALS: Ht 177.8 cm; Wt 113.0 kg
[2017-04-28 02:57] VITALS: Ht 177.8 cm; Wt 113.0 kg
--- NOTE | 2017-04-28 02:59 | ERD ---
ER Documentation Chief Complaint Chief Complaint Intoxication HPI The patient is a 52-year-old male, presenting to the ER because of acute ankle intoxication after he was kicked out of the bar. There was no trauma, he denies headache, neck pain, chest pain, abdominal pain, complains of vomiting. ROS All systems reviewed and are negative except as per history of present illness. Medications Home Meds Active Scripts Gabapentin* (Neurontin*) 300 Mg Cap, 300 MG PO TID@09,13,17 for 30 Days, #90 2 Refills Prov:BERNADETTE HOLCOMB 08/02/16 Albuterol Sulfate* (Proair HFA*) 8.5 Gm Hfa.aer.ad, 2 PUFF INH Q4H Y for WHEEZING AND SOB, #1 INH 1 Refill Prov:BERNADETTE HOLCOMB 08/02/16 Metformin* (Glucophage*) 500 Mg Tab, 500 MG PO BID, #60 TAB 2 Refills Prov:BERNADETTE HOLCOMB 08/02/16 Aspirin* (Aspirin* Chew) 81 Mg Tab.chew, 81 MG PO DAILY, #90 TAB.CHEW Prov:BERNADETTE HOLCOMB 08/02/16 Atorvastatin* (Atorvastatin*) 80 Mg Tablet, 80 MG PO DAILY, #90 TAB Prov:BERNADETTE HOLCOMB 08/02/16 Clopidogrel Bisulfate (Clopidogrel) 75 Mg Tablet, 75 MG PO DAILY, #90 TAB Prov:BERNADETTE HOLCOMB 08/02/16 Docusate Sodium* (Colace*) 100 Mg Cap, 100 MG PO BID for 30 Days Prov:ROCÍO JEAN 03/26/14 Discontinued Reported Medications Enoxaparin Sodium* (Lovenox*) 40 Mg/0.4 Ml Syringe, 40 MG SC DAILY, SYR 03/24/14 Discontinued Scripts Hydrocodone Bit-Acetaminophen* ([place]*) 5-325 Mg Tab, 1 TAB PO Q6 Y for PAIN, # 12 TAB Prov:JOSH LAUREN DO 01/23/15 Morphine Sulfate (Morphine Sulfate) 2 Mg/Ml Soln, 2 MG IV Q2H Y for PAIN for 30 Days Prov:ROCÍO JEAN 03/26/14 Insulin Aspart* (Novolog Insulin Pen*) 100 Unit/Ml Soln, 0 UNIT SC WITH MEALS BEDTIME for 30 Days Prov:ROCÍO JEAN 03/26/14 Hydrocodone Bit-Acetaminophen (Hydrocodone-APAP) 1 Tab Tab, 1 TAB PO Q12H Y for PAIN for 30 Days Prov:ROCÍO JEAN M. 03/26/14 Acetaminophen (TYLENOL 325 MG TAB) 325 Mg Tab, 650 MG PO Q4H Y for Temp greater than 99.6F for 30 Days, TAB Prov:ROCÍO JEAN M. 03/26/14 Allergies Allergies: Coded Allergies: No Known Allergy (Unverified , 03/23/14) PMhx/Soc History of Surgery: Yes (TRACH SECONDARY TO THROAT INFECTION) Anesthesia Reaction: No Hx Neurological Disorder: Yes (STROKE TIA) Hx Respiratory Disorders: Yes (ASTHMA) Hx Cardiac Disorders: Yes (HTN) Hx Psychiatric Problems: No Hx Miscellaneous Medical Probl: No (NEUROPATHY, DM) Hx Alcohol Use: No Hx Substance Use: No Hx Tobacco Use: Yes Physical Exam Vitals Vital Signs Date Time Temp Pulse Resp B/P Pulse Ox O2 Delivery O2 Flow Rate FiO2 04/28/17 02:57 98.0 83 17 111/85 94 Physical Exam Const: No acute distress. Head: Atraumatic. Eyes: Normal Conjunctiva. ENT: Normal External Ears, Nose and Mouth. Neck: Full range of motion. No meningismus. Resp: Clear to auscultation bilaterally. Cardio: Regular rate and rhythm. Abd: Soft, non distended, normal bowel sounds, non tender. Skin: No petechiae or rashes. Back: No midline or flank tenderness. Ext: No cyanosis, or edema. Neur: Awake and alert. No focal deficit. Intoxicated Psych: Intoxicated Result Diagram: 04/28/17 0325 04/28/17 0325 Results 24 hrs Laboratory Tests Test 04/28/17 03:25 White Blood Count 9.110^3/ul Red Blood Count 5.4410^6/ul Hemoglobin 15.4g/dl Hematocrit 46.5% Mean Corpuscular Volume 85.5fl Mean Corpuscular Hemoglobin 28.3pg Mean Corpuscular Hemoglobin Concent 33.1g/dl Red Cell Distribution Width 15.6% Platelet Count 08155^3/UL Mean Platelet Volume 11.3fl Neutrophils % 70.6% Lymphocytes % 19.8% Monocytes % 5.8% Eosinophils % 1.5% Basophils % 1.1% Nucleated Red Blood Cells % 0.0/100WBC Neutrophils # 6.410^3/ul Lymphocytes # 1.810^3/ul Monocytes # 0.510^3/ul Eosinophils # 0.110^3/ul Basophils # 0.110^3/ul Nucleated Red Blood Cells # 0.010^3/ul Sodium Level 147mmol/L Potassium Level 4.3mmol/L Chloride Level 108mmol/L Carbon Dioxide Level 24mmol/L Anion Gap 19 Blood Urea Nitrogen 17mg/dl Creatinine 0.73mg/dl Glucose Level 159mg/dl Calcium Level 9.1mg/dl Total Bilirubin 0.3mg/dl Direct Bilirubin 0.00mg/dl Indirect Bilirubin 0.3mg/dl Aspartate Amino Transf (AST/SGOT) 27IU/L Alanine Aminotransferase (ALT/SGPT) 43IU/L Alkaline Phosphatase 81IU/L Total Protein 7.5g/dl Albumin 4.0g/dl Globulin 3.50g/dl Albumin/Globulin Ratio 1.14 Lipase 63U/L Ethyl Alcohol Level 172.0mg/dl Current Medications Medications (Trade) Dose Ordered Sig/Mindi Route PRN Reason Start Time Stop Time Status Last Admin Dose Admin Sodium Chloride (NS) 1,000 ml @ 1,000 mls/hr Q1H ONCE IV 04/28/17 03:30 04/28/17 04:29 DC 04/28/17 03:28 Ondansetron HCl (Zofran Inj) 4 mg ONCE STAT IV 04/28/17 03:05 04/28/17 03:07 DC 04/28/17 03:27 Procedures/MDM MEDICAL MAKING DECISION: The patient is a 52-year-old male, presenting with acute ankle intoxication. He was treated with 1 L normal saline for clinical dehydration, Zofran 4 mg IV for nausea with good response The differential diagnoses considered include but are not limited to cholelithiasis, cholecystitis, cystitis, pancreatitis, hepatitis, gastritis, peptic ulcer disease, gastric ulcer, appendicitis, diverticulitis, cholangitis, choledocholithiasis, partial small bowel obstruction. Departure Diagnosis: Primary Impression: Alcoholic intoxication Condition: Good Comments He will be discharged when he suze The patient is signed out to Dr. Cohen, pending sober and discharge MARSHALL CABA MD Apr 28, 2017 02:59
[2017-04-28] MEDS ORDERED: ONDANSETRON 4 MG INJ IV STA (03:05)
[2017-04-28] MEDS ORDERED: SOD CHLORIDE 0.9% 1,000 ML IV ONE (03:30)
[2017-04-28 04:03] LABS: ALBUMIN/GLOBULIN RATIO 1.14; BILIRUBIN,INDIRECT 0.3 mg/dl (0-1.1); BILIRUBIN,TOTAL 0.3 mg/dl (0.2-1.3); CALCIUM 9.1 mg/dl (8.4-10.2); CREATININE 0.73 mg/dl (0.61-1.24); POTASSIUM 4.3 mmol/L (3.5-5.1); TOTAL PROTEIN 7.5 g/dl (6.1-8.1)
[2017-04-28 04:09] LABS: BASOPHIL # 0.1 10^3/ul (0.0-0.1); BASOPHILS % 1.1 % (0.0-2.0); EOSINOPHILS # 0.1 10^3/ul (0.0-0.5); EOSINOPHILS % 1.5 % (0.0-7.0); HEMATOCRIT 46.5 % (42.0-52.0); HEMOGLOBIN 15.4 g/dl (14.0-18.0); LYMPHOCYTES # 1.8 10^3/ul (0.8-2.9); LYMPHOCYTES % 19.8 % (15.0-51.0); MEAN CORPUSCULAR HEMOGLOBIN 28.3 pg (29.0-33.0); MEAN CORPUSCULAR HGB CONC 33.1 g/dl (32.0-37.0); MEAN CORPUSCULAR VOLUME 85.5 fl (82.0-101.0); MEAN PLATELET VOLUME 11.3 fl (7.4-10.4); MONOCYTE # 0.5 10^3/ul (0.3-0.9); MONOCYTES % 5.8 % (0.0-11.0); NEUTROPHIL # 6.4 10^3/ul (1.6-7.5); NEUTROPHILS % 70.6 % (39.0-77.0); PLATELET COUNT 245 10^3/UL (140-415); RED BLOOD COUNT 5.44 10^6/ul (4.70-6.10); RED CELL DISTRIBUTION WIDTH 15.6 % (11.5-14.5); WHITE BLOOD COUNT 9.1 10^3/ul (4.8-10.8)
[2017-04-28 07:16] VITALS: BP 103/61; PULSE 70; RESP 17; TEMP 98
== END 2017-04-28 08:34 | disposition home or self-care (01) ==
LOC: E/R 02:47
DX: F10.120 Alcohol abuse with intoxication, uncomplicated (principal); J45.909 Unspecified asthma, uncomplicated; I10 Essential (primary) hypertension; E11.9 Type 2 diabetes mellitus without complications; Z79.4 Long term (current) use of insulin; Z79.01 Long term (current) use of anticoagulants; Z87.891 Personal history of nicotine dependence; Z79.84 Long term (current) use of oral hypoglycemic drugs; Z79.82 Long term (current) use of aspirin
CPT/HCPCS: 36415; 80053; 80306; 83690; 85025; 96374; J2405; J7030; Z7502

== ENCOUNTER 2018-05-10 21:00 | Emergency (ER) | payer OTHER ==
[~2018-05-10] VITALS: Ht 177.8 cm; Wt 100.3 kg
[~2018-05-10 21:00] MED LIST changes: -ACET-2158 PO; -ALBU8.5H3 INH; +ALBU8.5H8 INH; +ASPI-903 PO; -ASPI81TA3 PO; +ATOR-2 PO; -ATOR80TA75 PO; -ENOX40DI14 SC; -HYDR-3498 PO; -HYDR-3504 PO; +METF-849 PO; -METF500T4 PO; -MOR2I IV; -NOVO3I SC
[2018-05-10 21:20] VITALS: Ht 177.8 cm; Wt 100.3 kg
[2018-05-11] MEDS ORDERED: IPRATROPIUM (NEB) 0.5 MG/2.5 ML AMP NEB STA (03:07)
[2018-05-11] MEDS ORDERED: ALBUTEROL 0.083% (NEB) 2.5 MG/3 ML AMP NEB STA (03:07)
[2018-05-11] MEDS ORDERED: morphine 4 MG/ML VIAL IV STA (03:08)
[2018-05-11] MEDS ORDERED: NITROGLYCERIN (SL) 0.4 MG TAB SL PRN (03:30)
--- NOTE | 2018-05-11 05:01 | ERD ---
ER Documentation Chief Complaint Chief Complaint inhaler not working, hx asthma; SOB now HPI This is a 53-year-old male presents emergency room for evaluation of chest pain shortness of breath and a dry cough. The patient states that he does have a history of asthma and this does feel similar to previous asthma exacerbations. The patient states he is using his inhaler with minimal relief and he came to the ER today for evaluation of his symptoms. Patient denies any fevers any heart palpitations any diaphoresis or vomiting ROS All systems reviewed and are negative except as per history of present illness. Medications Home Meds Active Scripts Gabapentin* (Neurontin*) 300 Mg Cap, 300 MG PO TID@09,13,17 for 30 Days, #90 2 Refills Prov:BERNADETTE HOLCOMB 08/02/16 Albuterol Sulfate* (Proair HFA*) 8.5 Gm Hfa.aer.ad, 2 PUFF INH Q4H PRN for WHEEZING AND SOB, #1 INH 1 Refill Prov:BERNADETTE HOLCOMB 08/02/16 Metformin* (Glucophage*) 500 Mg Tab, 500 MG PO BID, #60 TAB 2 Refills Prov:BERNADETTE HOLCOMB 08/02/16 Aspirin* (Aspirin* Chew) 81 Mg Tab.chew, 81 MG PO DAILY, #90 TAB.CHEW Prov:BERNADETTE HOLCOMB 08/02/16 Atorvastatin* (Atorvastatin*) 80 Mg Tablet, 80 MG PO DAILY, #90 TAB Prov:BERNADETTE HOLCOMB 08/02/16 Clopidogrel Bisulfate (Clopidogrel) 75 Mg Tablet, 75 MG PO DAILY, #90 TAB Prov:BERNADETTE HOLCOMB 08/02/16 Docusate Sodium* (Colace*) 100 Mg Cap, 100 MG PO BID for 30 Days Prov:ROCÍO JEAN 03/26/14 Allergies Allergies: Coded Allergies: No Known Allergy (Unverified , 03/23/14) PMhx/Soc History of Surgery: Yes (Tracheostomy) Anesthesia Reaction: No Hx Neurological Disorder: Yes (CVA,TIA) Hx Respiratory Disorders: Yes (COPD) Hx Cardiac Disorders: Yes (HTN) Hx Psychiatric Problems: No Hx Miscellaneous Medical Probl: No (DM,Dyslipidemia) Hx Alcohol Use: Yes (Formerly) Hx Substance Use: No Hx Tobacco Use: Yes (1 packs/day) Smoking Status: Current every day smoker Physical Exam Vitals Vital Signs Date Temp Pulse Resp B/P (MAP) Pulse Ox O2 O2 Flow FiO2 Time Delivery Rate 05/11/18 67 20 99 21 03:32 05/11/18 97.8 63 28 114/95 97 Room Air 03:06 (101) 05/10/18 99.0 89 18 136/76 97 21:20 (96) Physical Exam INITIAL VITAL SIGNS: Reviewed by me GENERAL: The patient is well developed and appropriate for usual state of health in no apparent distress HEENT: Pupils equal, round, and reactive to light. EOMI. There is no scleral icterus. NECK: C-spine is soft and supple, there is no meningismus. There is no cervical lymphadenopathy. LUNGS: Mild end expiratory wheezing bilaterally HEART: Regular rate and rhythm, no murmurs, clicks, rubs or gallops. ABDOMEN: Soft, non-tender, non-distended. There are bowel sounds in all four quadrants. No rebound or guarding. EXTREMITIES: There is no peripheral cyanosis or edema. No focal swelling or erythema. NEUROLOGICAL: The patient moves all four extremities with 5/5 strength. Cranial nerves II - XII are intact. Normal gait. Alert and oriented SKIN: There is no apparent rash or petechiae. HEME/LYMPHATIC: There is no evidence of excessive bruising or lymphedema. PSYCHIATRIC: The patient does not appear anxious or depressed. Result Diagram: 05/11/18 0330 05/11/18 0330 Results 24 hrs Laboratory Tests Test 05/11/18 03:30 White Blood Count 7.6 10^3/ul Red Blood Count 5.12 10^6/ul Hemoglobin 14.6 g/dl Hematocrit 44.3 % Mean Corpuscular Volume 86.5 fl Mean Corpuscular Hemoglobin 28.5 pg Mean Corpuscular Hemoglobin Concent 33.0 g/dl Red Cell Distribution Width 15.6 % Platelet Count 238 10^3/UL Mean Platelet Volume 11.8 fl Immature Granulocytes % 1.400 % Neutrophils % 41.2 % Lymphocytes % 37.0 % Monocytes % 12.9 % Eosinophils % 5.9 % Basophils % 1.6 % Nucleated Red Blood Cells % 0.0 /100WBC Immature Granulocytes # 0.110 10^3/ul Neutrophils # 3.1 10^3/ul Lymphocytes # 2.8 10^3/ul Monocytes # 1.0 10^3/ul Eosinophils # 0.5 10^3/ul Basophils # 0.1 10^3/ul Nucleated Red Blood Cells # 0.0 10^3/ul Sodium Level 143 mmol/L Potassium Level 4.1 mmol/L Chloride Level 112 mmol/L Carbon Dioxide Level 25 mmol/L Anion Gap 6 Blood Urea Nitrogen 16 mg/dl Creatinine 0.64 mg/dl Est Glomerular Filtrat Rate mL/min > 60 mL/min Glucose Level 115 mg/dl Calcium Level 8.7 mg/dl Troponin I 0.017 ng/ml Current Medications Medications Dose Sig/Mindi Start Time Status Last (Trade) Ordered Route PRN Stop Time Admin Dose Reason Admin 1 tab Q5M UP TO 3 05/11/18 Nitroglycerin DOSES PRN 03:30 SL CHEST (Nitroglyceri PAIN n (Sl Tab) 0.4 Mg) Albuterol 5 mg ONCE STAT 05/11/18 DC 05/11/18 (Proventil NEB 03:07 05/11/18 03:31 0.083% (Neb)) 03:09 Ipratropium 0.5 mg ONCE STAT 05/11/18 DC 05/11/18 [place] NEB 03:07 05/11/18 03:31 (Atrovent 03:09 0.02% (Neb)) Morphine 4 mg ONCE STAT 05/11/18 DC 05/11/18 Sulfate IV 03:08 05/11/18 04:01 (morphine) 03:09 Procedures/MDM Chest X-ray 1V Interpreted by me: Soft Tissue: No acute abnormalities Bones: No acute abnormalities Mediastinum/Cardiac Silhouette/Lungs: [No acute abnormalities] EKG: Rate/Rhythm: [Normal Sinus Rhythm] QRS, ST, T-waves: [No changes consistent w/ acute ischemia] Impression: [No evidence of ischemia or arrhythmia] This is a 53-year-old male with a history of hypertension, CVA, asthma who presents to the emergency room for evaluation of cough, shortness of breath. On my exam the patient was not hypoxic and he was in no respiratory distress however he did have wheezing bilaterally. The patient does have multiple risk factors on EKG it was obtained which is nonischemic. His chest x-ray is clear at this time, he was given a breathing treatment and morphine. His lab work is normal including a troponin. After receiving a breathing treatment I reevaluated the patient and he stated he was feeling much better. His pulse ox is 99% on room air at this time, he remains hemodynamically stable. The patient was given 125 mg of Solu-Medrol and will be discharged at this time with a prescription for prednisone. Departure Diagnosis: Primary Impression: Acute asthma exacerbation Additional Impression: Shortness of breath Condition: JOSH Johnson DO May 11, 2018 05:01
[2018-05-11] MEDS ORDERED: PRED20TA PO (05:02)
[2018-05-11 05:18] VITALS: BP 109/58; PULSE 88; RESP 16
[2018-05-11] MEDS ORDERED: METHYLPREDNISOLONE 125 MG INJ IV ONE (05:30)
== END 2018-05-11 05:19 | disposition home or self-care (01) ==
LOC: FTE 21:00 → E/R 05-11 05:19
DX: J45.901 Unspecified asthma with (acute) exacerbation (principal); I10 Essential (primary) hypertension; E11.9 Type 2 diabetes mellitus without complications; J44.9 Chronic obstructive pulmonary disease, unspecified; F17.210 Nicotine dependence, cigarettes, uncomplicated; Z79.01 Long term (current) use of anticoagulants; Z79.82 Long term (current) use of aspirin; Z86.73 Personal history of transient ischemic attack (TIA), and cerebral infarction without residual deficits; Z79.84 Long term (current) use of oral hypoglycemic drugs
CPT/HCPCS: 71045; 80048; 84484; 85025; 94664; J2270; Z7610; 36415; 93005; 96374